=== PATIENT | male | born 1980 | race Caucasian/White ===

== ENCOUNTER → 2025-04-04 | Outpatient (CLI) | payer BC, SELFPAY ==
--- NOTE | 2025-04-04 15:40 | XR_ITS ---
Examination: Lumbar spine, 5 views Technique: Lumbar spine AP, lateral, coned lateral lower lumbar spine, bilateral obliques 5 views Exam date and time: April 04, 2025 1554 hours INDICATIONS: Low back pain beginning 5 years ago FINDINGS: Adequate alignment lumbar vertebral bodies No lumbar fracture Mild lumbar spondylosis Moderate degenerative disc disease L2-L3 IMPRESSION: Moderate degenerative disc disease L2-L3
--- NOTE | 2025-04-04 15:40 | XR_ITS ---
Examination: Bilateral hips, AP pelvis, 5 views Technique: AP, lateral views both hips, AP pelvis, 5 views Exam date and time: April 04, 2025, 1554 hours INDICATIONS: Hip pain 5 years. FINDINGS: Advanced right hip osteoarthritis Radiolucencies in the right femoral head suspicious for avascular necrosis. Moderate narrowing left hip joint. No hip or pelvic fracture Impression: Advanced right hip osteoarthritis, MRI right hip follow-up without contrast would confirm avascular necrosis right femoral head
--- NOTE | 2025-04-04 15:40 | XR_ITS ---
Examination: Thoracic spine 3 views TECHNIQUE: AP lateral, lateral upper dorsal spine 3 views Date and time: April 04, 2025, 1554 hours INDICATIONS: Mid back pain 5 years. FINDINGS: Satisfactory limited thoracic vertebral bodies. No thoracic fracture. [id number] diffuse thoracic degenerative disc disease. IMPRESSION: [id number] diffuse thoracic degenerative disc disease
--- NOTE | 2025-04-04 15:40 | XR_ITS ---
EXAMINATION: Cervical spine, 5 views Technique: Cervical spine AP, AP odontoid, lateral, bilateral obliques, 5 views Exam date and time: April 04, 2025 1554 hours INDICATIONS: Neck pain 5 years. FINDINGS: Adequate alignment cervical vertebral bodies Mild old depression superior endplate C5 Mild disc narrowing C6-C7 Intact odontoid No acute cervical fracture Moderate left neural foraminal stenosis C4-C5 IMPRESSION: Early degenerative disc disease C6-C7
== END | disposition home or self-care (01) ==
LOC: CDIM 15:29
PROVIDERS: Referring Provider Student in an Organized Health Care Education/Training Program; Visit Provider Student in an Organized Health Care Education/Training Program
DX: M50.323 Other cervical disc degeneration at C6-C7 level (principal); M51.360 Other intervertebral disc degeneration, lumbar region with discogenic back pain only; M51.34 Other intervertebral disc degeneration, thoracic region; M16.11 Unilateral primary osteoarthritis, right hip
CPT/HCPCS: 72050; 72072; 72110; 73523

== ENCOUNTER → 2025-06-13 | Outpatient (CLI) | payer BC, SELFPAY ==
[2025-06-13 11:58] LABS: Collection Type, Urine Clean Catch
[2025-06-13 12:05] LABS: Basophils # (Auto) 0.0 Thou/mm3 (0.0-0.2); Basophils % (Auto) 0 % (0-2.5); Eosinophils # (Auto) 0.0 Thou/mm3 (0.0-0.5); Eosinophils % (Auto) 0 % (0-10); Hematocrit 43.8 % (41.0-53.0); Hemoglobin 15.0 g/dL (13.5-16.0); Immature Granulocytes Auto 0.04 Thou/mm3 (0.00-0.00); Lymphocytes # (Auto) 1.6 Thou/mm3 (1.0-4.8); Lymphocytes % (Auto) 19 % (10-50); Mean Corpuscular HGB Conc 34.2 g/dl (31.0-37.0); Mean Corpuscular Hemoglobin 32.4 pg (25.0-35.0); Mean Corpuscular Volume 95 fL (80-100); Monocytes # (Auto) 0.6 Thou/mm3 (0.0-0.8); Monocytes % (Auto) 7 % (0-12); Neutrophils # (Auto) 6.4 Thou/mm3 (1.8-7.7); Neutrophils % (Auto) 74 % (37-80); Nucleated Red Blood Cell # 0.00 Thou/mm3 (0.00-0.00); Nucleated Red Blood Cell % 0 /100 WBC (0); Platelet Count 315 Thou/mm3 (140-440); RDW Standard Deviation 42.8 fL (35.1-43.9); Red Blood Count 4.63 Miln/mm3 (4.50-5.90); White Blood Count 8.7 Thou/mm3 (3.8-10.6)
[2025-06-13 12:07] LABS: Bilirubin,Urine Negative (Negative); Blood,Urine Negative (Negative); Clarity,Urine Clear (Clear/Hazy); Color,Urine Yellow (Lt Yel-Yel); Glucose, Urine Negative (Negative); Ketones,Urine Negative (Negative); Leukocyte Esterase,Urine Positive (Negative); Nitrite,Urine Negative (Negative); PH,Urine 6.0 (5.0-7.0); Protein,Urine Trace (Neg - Trace); RBC,Urine 4 /hpf (0-3); Specific Gravity,Urine 1.028 (1.001-1.035); Squamous Epithelial Cell,Urine 1 /hpf (0-5); Urobilinogen,Urine Negative mg/dL (0.0-1.0); WBC,Urine 14 /hpf (0-5)
[2025-06-13 12:22] LABS: INR 0.9 (0.9-1.3); Partial Thromboplastin Time 24.9 Seconds (22.0-36.0); Prothrombin Time 9.8 Seconds (9.0-12.2)
[2025-06-13 12:25] LABS: Culture Indicated,Urine Yes
[2025-06-13 12:33] LABS: Anion Gap 12 (7-16); BUN/Creatinine Ratio 12 Ratio (12-20); Blood Urea Nitrogen 13 mg/dL (9-23); Calcium 9.7 mg/dL (8.3-10.6); Carbon Dioxide 29.3 mMol/L (20.0-31.0); Chloride 102 mMol/L (98-107); Creatinine (Component) 1.1 mg/dL (0.6-1.3); Glucose 97 mg/dL (74-106); Osmolality,Calculated 285 (275-295); Potassium 3.5 mMol/L (3.4-5.1); Sodium 143 mMol/L (136-145); eGFR > 60 See Note
--- NOTE | 2025-06-13 13:18 | XR_ITS ---
EXAMINATION: PA lateral chest 2 views TECHNIQUE: Upright PA and lateral chest 2 views Date and time: June 13, 2025, 1322 hours INDICATIONS: Preop FINDINGS: Normal heart size Moderate hyperexpansion. No pneumonia or pulmonary edema. Moderate osteopenia IMPRESSION: COPD No pneumonia or pulmonary edema
== END | disposition home or self-care (01) ==
LOC: CDIM 11:37 → COPL 11:46
PROVIDERS: PCP Student in an Organized Health Care Education/Training Program; Referring Provider Student in an Organized Health Care Education/Training Program; Visit Provider Radiology Diagnostic Radiology
DX: Z01.818 Encounter for other preprocedural examination (principal); J44.9 Chronic obstructive pulmonary disease, unspecified; M16.11 Unilateral primary osteoarthritis, right hip; M25.559 Pain in unspecified hip
CPT/HCPCS: 36415; 71046; 80048; 81001; 85025; 85610; 85730; 87086